=== PATIENT | male | born 1990 | race Caucasian/White ===

== ENCOUNTER 2016-09-14 21:24 | Emergency (ER) | payer MEDICAID ==
[~2016-09-14] VITALS: Ht 165.1 cm; Wt 57.6 kg
[2016-09-14 21:37] VITALS: BP 103/69
--- NOTE | 2016-09-15 01:30 | NUR ---
TO ER BED 7
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
--- NOTE | 2016-09-15 01:48 | NUR ---
Patient being evaluated by physician DR FAITH at bedside.
--- NOTE | 2016-09-15 03:30 | NUR ---
PT RESTING IN BED NO S/S OF DISTRESS NOTED AT THE MOMENT.
[2016-09-15 05:35] VITALS: BP 100/55
--- NOTE | 2016-09-15 05:35 | NUR ---
Patient discharged with v/s stable. Written and verbal after care instructions given and explained. Patient verbalized understanding. Ambulatory with steady gait. All questions addressed prior to discharge. Advised to follow up with PMD. INFORMATION FOR [facility] PROVIDED TO PT BEFORE D/C.
== END 2016-09-15 05:35 | disposition home or self-care (01) ==
LOC: MED 21:24
DX: G47.00 Insomnia, unspecified (principal)
CPT/HCPCS: 99283

== ENCOUNTER → 2022-12-11 | Emergency (ER) | payer MEDICAID ==
[~2022-12-11] VITALS: Ht 172.7 cm; Wt 59.9 kg
--- NOTE | 2022-12-11 16:21 | NUR ---
CÉSAR ROBERTS- BIBA TO ER BED 05
[2022-12-11 16:25] VITALS: BP 146/91; PULSE 103; RESP 20; TEMP 99.1; O2SAT 95
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
--- NOTE | 2022-12-11 16:45 | NUR ---
blood drawn. pt swabbed for covid(blas/novel). handed to lab
--- NOTE | 2022-12-11 16:47 | NUR ---
MD MORAN AT BEDSIDE FOR EVALUATION
[2022-12-11 16:55] LABS: BASOPHILS # (AUTO) 0.1 K/uL (0.00-0.22); BASOPHILS % (AUTO) 0.8 % (0.0-2.0); EOSINOPHILS # (AUTO) 0.1 K/uL (0-0.4); EOSINOPHILS % (AUTO) 0.6 % (0.0-4.0); HEMATOCRIT 43.5 % (36-52); HEMOGLOBIN 14.6 g/dL (12.0-18.0); LYMPHOCYTES # (AUTO) 3.1 K/uL (2.0-11.5); LYMPHOCYTES % (AUTO) 34.1 % (20.5-51.1); MEAN CORPUSCULAR HEMOGLOBIN 30 pg (27-31); MEAN CORPUSCULAR HGB CONC 34 g/dL (33-37); MEAN CORPUSCULAR VOLUME 87.5 fL (80-94); MONOCYTES # (AUTO) 0.5 K/uL (0.8-1.0); MONOCYTES % (AUTO) 5.9 % (1.7-9.3); NEUTROPHILS # (AUTO) 5.4 K/uL (1.8-7.7); NEUTROPHILS % (AUTO) 58.6 % (42.2-75.2); PLATELET COUNT (AUTO) 309 K/uL (140-450); RED BLOOD CELL COUNT(AUTO) 4.97 MIL/uL (4.20-6.10); RED CELL DISTRIBUTION WIDTH 14.2 % (11.6-13.7); WHITE BLOOD COUNT (AUTO) 9.2 K/uL (4.8-10.8)
[2022-12-11 17:12] LABS: ACETAMINOPHEN < 0.5 ug/ml (10-30); ALBUMIN 4.3 g/dL (3.4-5.0); ANION GAP 13.2 (8-16); ASPARTATE AMINOTRANSFERASE 20 U/L (15-37); CARBON DIOXIDE 30.4 mmol/L (21-32); CHLORIDE 103 mmol/L (98-107); CREATININE 0.9 mg/dL (0.6-1.3); GFR ARICAN-AMERICAN 125 mL/min (>90); GLUCOSE 101 mg/dL (74-106); POTASSIUM 3.6 mmol/L (3.5-5.1); SALICYLATE < 2.8 mg/dL (2.8-20.0); SODIUM SERUM 143 mmol/L (136-145); TOTAL BILIRUBIN 0.6 mg/dL (0.0-1.0); UREA NITROGEN, BLOOD 12 mg/dL (7-18)
[2022-12-11 17:59] LABS: BARBITURATE, URINE NEGATIVE ng/ml (NEG <=200); BENZODIAZEPINE, URINE POSITIVE ng/mL (NEG <=200); CANNABINOID, URINE POSITIVE ng/mL (NEG <=50); COCAINE, URINE NEGATIVE ng/mL (NEG <=300); OPIATE, URINE NEGATIVE ng/mL (NEG <=2000); PHENCYCLIDINE SCREEN,URINE NEGATIVE ng/mL (NEG <=25)
--- NOTE | 2022-12-11 18:00 | NUR ---
pt provided w/ dinner. pt in view, awake and eating in bed.
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
--- NOTE | 2022-12-11 18:44 | NUR ---
PT REQUESTING TO LEAVE " I FEEL BETTER" " I JUST NEED HELP WITH A RIDE TO [facility]". MD GALVEZ MADE AWARE
[2022-12-11 18:50] VITALS: BP 130/88; PULSE 90; RESP 20; TEMP 98; O2SAT 99
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
== END | disposition home or self-care (01) ==
LOC: MED 16:21
DX: R45.851 Suicidal ideations (principal); F20.9 Schizophrenia, unspecified; F31.9 Bipolar disorder, unspecified; F15.90 Other stimulant use, unspecified, uncomplicated; F17.210 Nicotine dependence, cigarettes, uncomplicated; Z20.822 Contact with and (suspected) exposure to COVID-19
CPT/HCPCS: 36415; 80053; 80305; 82550; 85025; 87426; 87635; 99283; C9803; G0480; G0482